=== PATIENT | male | born 1980 | race Caucasian/White ===

== ENCOUNTER → 2020-02-03 15:57 | Outpatient (BNVA) | payer OTHER, SELFPAY | PROVIDERS: PCP Internal Medicine; Referring Provider Internal Medicine; Visit Provider Nurse Practitioner | DX: K21.9 Gastro-esophageal reflux disease without esophagitis (principal); Z87.19 Personal history of other diseases of the digestive system | CPT/HCPCS: 99202 ==

== ENCOUNTER → 2020-04-13 15:59 | Outpatient (BNVA) | payer OTHER, SELFPAY | PROVIDERS: PCP Internal Medicine; Visit Provider Nurse Practitioner | DX: Z13.89 Encounter for screening for other disorder (principal) | CPT/HCPCS: Q3014 ==

== ENCOUNTER 2020-05-12 10:19 | Outpatient (REF) | payer OTHER, SELFPAY ==
[2020-05-12 10:55] LABS: MANUAL DIFF FLAG NO
[2020-05-12 10:59] LABS: Basophils Percent Auto 0.4 % (0-2); Eosinophils Absolute Auto 0.1 X10*3/uL (0.0-0.4); Eosinophils Percent Auto 1.6 % (0-4); Hemoglobin 16.7 g/dl (14.0-18.0); Imm Gran Abs Auto 0.02 X10*3/uL (0.00-0.03); Imm Gran Pct Auto 0.4 % (0.0-0.4); Lymphocytes Absolute Auto 2.3 X10*3/uL (1.2-4.9); Lymphocytes Percent Auto 40.3 % (20-40); Mean Corpuscular HGB Conc 34.1 g/dl (31.0-36.0); Mean Corpuscular Hemoglobin 30.8 pg (27.0-33.0); Mean Corpuscular Volume 90.4 fL (80-98); Mean Platelet Volume 10.2 fL (9.4-12.4); Monocytes Absolute Auto 0.5 X10*3/uL (0.1-1.2); Monocytes Percent Auto 9.7 % (2-11); Neutrophils Absolute Auto 2.7 X10*3/uL (2.0-8.3); Neutrophils Percent Auto 47.6 % (45-73); Platelet Count 290 X10*3/uL (160-400); Red Blood Count 5.42 X10*6/uL (4.60-5.80); Red Cell Distribution Width 12.6 % (11.0-16.0); White Blood Count 5.6 X10*3/uL (4.8-10.8)
[2020-05-12 11:23] LABS: Alanine Aminotransferase 21 U/L (0-40); Albumin Level 4.4 g/dL (3.5-5.0); Alkaline Phosphatase 65 U/L (39-117); Anion Gap 12 (12-20); Aspartate Amino Transferase 14 U/L (5-37); Bilirubin Total 0.7 mg/dL (0.0-1.0); Blood Urea Nitrogen 13 mg/dL (9-16); Calcium 9.6 mg/dL (8.4-10.2); Carbon Dioxide 28 mmol/L (22-29); Chloride 103 mmol/L (96-108); Estimated Glomerular Filt Rate > 60; Glucose Random 87 mg/dL (60-115); Potassium 4.6 mmol/L (3.3-5.1); Sodium 138 mmol/L (135-145)
== END 2020-05-12 10:20 | disposition home or self-care (01) ==
LOC: HO.LAB 10:19
PROVIDERS: PCP Internal Medicine; Visit Provider Nurse Practitioner
DX: K21.9 Gastro-esophageal reflux disease without esophagitis (principal)
CPT/HCPCS: 36415; 80053; 85025

== ENCOUNTER → 2020-09-06 08:28 | Outpatient (BNVA) | payer OTHER, SELFPAY | PROVIDERS: Visit Provider Nurse Practitioner | CPT/HCPCS: Q3014 ==

== ENCOUNTER 2020-09-09 10:56 | Outpatient (REF) | payer OTHER, SELFPAY | END 2020-09-09 10:57 | disposition home or self-care (01) | LOC: HO.LNP 10:56 | PROVIDERS: Visit Provider Nurse Practitioner | DX: K21.9 Gastro-esophageal reflux disease without esophagitis (principal) | CPT/HCPCS: 87338 ==

== ENCOUNTER → 2020-10-07 09:11 | Outpatient (BNVA) | payer OTHER, SELFPAY | PROVIDERS: PCP Internal Medicine; Visit Provider Nurse Practitioner | DX: K21.9 Gastro-esophageal reflux disease without esophagitis (principal); R10.13 Epigastric pain; R14.0 Abdominal distension (gaseous); F17.210 Nicotine dependence, cigarettes, uncomplicated; Z87.19 Personal history of other diseases of the digestive system | CPT/HCPCS: Q3014 ==

== ENCOUNTER → 2020-11-15 09:01 | Outpatient (BNVA) | payer OTHER, SELFPAY | PROVIDERS: PCP Internal Medicine; Visit Provider Nurse Practitioner | CPT/HCPCS: Q3014 ==

== ENCOUNTER → 2021-01-12 09:27 | Outpatient (BNVA) | payer OTHER, SELFPAY | PROVIDERS: PCP Internal Medicine; Visit Provider Nurse Practitioner | DX: Z13.89 Encounter for screening for other disorder (principal) | CPT/HCPCS: Q3014 ==

== ENCOUNTER → 2021-02-24 08:35 | Outpatient (BNVA) | payer OTHER, SELFPAY | PROVIDERS: PCP Internal Medicine; Visit Provider Nurse Practitioner | DX: Z13.89 Encounter for screening for other disorder (principal) | CPT/HCPCS: Q3014 ==

== ENCOUNTER → 2022-10-01 08:19 | Outpatient (REF) | payer OTHER, SELFPAY ==
--- NOTE | 2022-10-01 08:23 | HM_ITS ---
Conclusion: 1. Patient was monitored for total period of 2 days 2. Baseline was normal sinus with average heart of 80 beats per minute 3. Rare PACs noted 4. 1 short run of SVT that lasted 11 beats could represent atrial fibrillation 5. No patient reported events MTDD
== END ==
LOC: HO.CARD 08:19
PROVIDERS: Visit Provider Internal Medicine
DX: R00.2 Palpitations (principal)
CPT/HCPCS: 93225

== ENCOUNTER → 2022-10-01 08:23 | Outpatient (BNV) | payer OTHER, SELFPAY | PROVIDERS: Visit Provider Internal Medicine Cardiovascular Disease | DX: I47.1 Supraventricular tachycardia (principal) | CPT/HCPCS: 93227 ==

== ENCOUNTER 2023-02-25 13:55 | Outpatient (REF) | payer OTHER, SELFPAY ==
[2023-02-25 16:25] LABS: Anion Gap 12 (12-20); Blood Urea Nitrogen 12 mg/dL (9-16); Calcium 9.9 mg/dL (8.4-10.2); Carbon Dioxide 29 mmol/L (22-29); Chloride 105 mmol/L (96-108); Estimated Glomerular Filt Rate > 60; Glucose Random 89 mg/dL (60-115); Magnesium 1.9 mg/dL (1.6-2.6); Potassium 3.8 mmol/L (3.3-5.1); Sodium 142 mmol/L (135-145)
[2023-02-25 16:37] LABS: TSH reflex Free T4 1.07 uIU/mL (0.32-4.0)
== END 2023-02-25 13:56 | disposition home or self-care (01) ==
LOC: HO.LAB 13:55
PROVIDERS: PCP Internal Medicine; Visit Provider Internal Medicine Cardiovascular Disease
DX: I49.8 Other specified cardiac arrhythmias (principal)
CPT/HCPCS: 36415; 80048; 83735; 84443; 93005; 99202

== ENCOUNTER 2023-02-25 13:55 | Outpatient (AMB) | payer OTHER, SELFPAY ==
--- NOTE | 2023-02-25 14:08 | MHC.OFFVIS ---
Intake Vital Signs 02/25/23 14:11 Height 5 ft 9 in Weight 196 lb 3.382 oz BMI 29.0 BP 112/70 Blood Pressure Location Lt brachial Position Sitting Pulse 86 Intake Visit Reasons: NPV/Palpitations/T. [place] Intake Note: New patient c/o fluttering in chest at times never happened during the holter he had in September Referral Specialist Required: No Allergies No Known Allergies Allergy (Verified 02/24/21 08:38) Medication List - Last Reconciled 02/25/23 by Will Roberts MD dicyclomine 20 mg PO QID fluticasone propionate 50 mcg/actuation 1 spray intranasal DAILY ibuprofen 400 mg PO TID PRN mirtazapine 30 mg PO BEDTIME naproxen 500 mg PO BID oxcarbazepine 600 mg PO BEDTIME pantoprazole (Protonix) 40 mg PO BID 30 days HPI HPI Comments History of Present Illness Details Thank you for referring Gabriel in cardiology consultation today for palpitations. He is a 42-year-old male with prior history of smoking, alcohol use as well as heavy caffeine intake. Patient is been having symptoms of palpitation about 6 years. About 6 years ago he stopped drinking alcohol and started having fluttering in his chest and he felt that this was from stopping the alcohol ring and from withdrawing. He can noted symptoms then subsided for about a year and half and has started happening again. There been happening since last 2-3 years. Increase in frequency with increased stress related to his mom's health. He describes his symptoms as rapid heart rate with palpitations that can last for up to 15 seconds. Some of these episodes are associated lightheadedness. He underwent Holter monitor recently, he said during wearing of the Holter monitor did not have any significant symptoms although he marked events which correlated with short burst of PACs. He has rare PAC burden on the Holter monitor but one 11 beat run suggestive atrial fibrillation. He has been concerned about these palpitations as he his mother had atrial fibrillation is grandmother had atrial fibrillation. Also has history of coronary artery disease on his father side. He said he drinks a lot of caffeine every day as he tries to stay awake. He has never been diagnosed with sleep apnea although he said he fatigue and gets poor sleep and is usually tired in the daytime. He also has started drinking alcohol again but says his alcohol intake is not as significant as before. He also continues to smoke. He said he would probably be able to quit. Denies any exertional chest pain. No shortness of breath, orthopnea, PND. No syncopal episodes. [facility] Family History Father Stomach ulcer Mother Afib Social History Household Members: None Alcohol intake: current Alcohol intake frequency: does not drink Cigarettes Per Day: 20 Review of Systems Const Denies chills, Denies daytime sleepiness, Denies fatigue, Denies fever(s), Denies frequent falls, Denies poor appetite, Denies snoring, Denies stops breathing during sleep, Denies weakness, Denies weight gain and Denies weight loss Eyes Denies loss of vision ENT Denies dizziness and Denies hearing loss Card Denies chest pain, Denies claudication, Denies leg edema, Denies lightheadedness, Denies palpitations, Denies dyspnea, Denies dyspnea on exertion and Denies orthopnea Resp Denies cough, Denies excessive phlegm production, Denies dyspnea, Denies dyspnea on exertion, Denies snoring and Denies wheezing GI Denies abdominal pain, Denies hematochezia, Denies change in bowel habits, Denies nausea and Denies vomiting Denies dysuria and Denies urinary frequency Musc Denies arthralgias, Denies muscle weakness, Denies numbness and Denies other (frequent falls) Skin/Breast Denies nail changes and Denies rash Neuro Denies Abnormal speech present, Denies dizziness, Denies frequent falls, Denies loss of vision, Denies memory loss, Denies numbness and Denies weakness Psych Denies depression and Denies memory loss Endo Denies fatigue and Denies palpitations Amandeep/Lymph Reports easy bruising and Reports other (anemia) Aller/Immun Denies wheezing Physical Exam Vital Signs: Last Vital Signs Pulse 86 02/25/23 14:11 BP 112/70 02/25/23 14:11 BMI result Body Mass Index 29.0 Const General: cooperative, comfortable, no acute distress, alert, awake, Physically active and anxious Nutritional Appearance: overweight Orientation/consciousness: patient oriented x3 Limitations: no limitations HEENT Head: Yes normocephalic and Yes atraumatic Neck Neck: Yes trachea midline, Yes supple and Yes no JVD Resp Effort & Inspection: normal respiratory effort Auscultation: clear to auscultation bilaterally Cardio Jugular venous distension: no JVD Palpation: normal PMI Rate: regular rate Rhythm: regular rhythm Heart sounds: S1 normal heart sound present, S2 normal heart sound present, no click, no gallops, no murmurs and no rubs GI Auscultation: normal bowel sounds Skin General skin exam: no rashes or lesions noted Neuro General: patient oriented x3 and no focal motor deficits Speech: No Abnormal speech present Extrem General: Yes no clubbing, cyanosis or edema Office Procedures EKG Details: EKG shows normal sinus rhythm with incomplete right bundle-branch block [id number]-[id number], Complete Assessment & Plan Assessment & Plan (1) Atrial arrhythmia: Code(s): I49.8 - Other specified cardiac arrhythmias Plan: Patient with highly symptomatic atrial arrhythmias and could have process bleed short runs of atrial fibrillation. However this probably is related to his underlying sleep apnea which is undiagnosed and will suggest him to have home sleep study as well as use of stimulants such as alcohol and caffeine. I have advised him to taper and eventually discontinue and abstain from caffeine and alcohol intake. Meanwhile given that he has highly symptomatic will advise him to be started on metoprolol 50 mg daily to improve his symptoms. He has no other risk factors. Will also obtain echocardiogram to evaluate LV systolic and diastolic function biatrial chamber size. Will obtain event monitor while on metoprolol therapy to see if his atrial arrhythmias suppressed. Will check for baseline blood work with TSH, BMP and magnesium level. Will follow up in the clinic in 2 months time, sooner p.r.n.. Thank you for allowing me to partake in his care Orders: Orders CA echo transthoracic complete Today I49.8 - Other specified cardiac arrhythmias Basic Metabolic Panel Today I49.8 - Other specified cardiac arrhythmias Magnesium Today I49.8 - Other specified cardiac arrhythmias RT home sleep study Today I49.8 - Other specified cardiac arrhythmias, R40.0 - Somnolence ECG 30 day event monitor Today I49.8 - Other specified cardiac arrhythmias TSH reflex Free T4 Today I49.8 - Other specified cardiac arrhythmias Medications: New metoprolol succinate ER (Toprol XL) 50 mg PO DAILY 30 tabs 5RF I49.8 - Other specified cardiac arrhythmias Coding Level of Care Code New Pt Level 4 (42808) Diagnoses Atrial arrhythmia I49.8 CPT Codes EKG - CPT: 31852-[id number], Complete ([id number])
[2023-02-25 14:11] VITALS: BP 112/70; PULSE 86; BMI 29.0
== END 2023-02-25 14:40 | disposition home or self-care (01) ==
PROVIDERS: Visit Provider Internal Medicine Cardiovascular Disease
DX: I49.8 Other specified cardiac arrhythmias (principal)
CPT/HCPCS: 93010; 99204

== ENCOUNTER 2023-12-20 09:22 | Outpatient (REF) | payer OTHER, SELFPAY ==
[2023-12-20 14:13] LABS: MANUAL DIFF FLAG NO
[2023-12-20 14:19] LABS: Basophils Absolute Auto 0.1 X10*3/uL (0.0-0.2); Basophils Percent Auto 0.7 % (0-2); Eosinophils Absolute Auto 0.1 X10*3/uL (0.0-0.4); Eosinophils Percent Auto 1.4 % (0-4); Hematocrit 52.7 % (42.0-52.0); Hemoglobin 18.1 g/dl (14.0-18.0); Imm Gran Abs Auto 0.03 X10*3/uL (0.00-0.03); Imm Gran Pct Auto 0.4 % (0.0-0.4); Lymphocytes Absolute Auto 2.3 X10*3/uL (1.2-4.9); Lymphocytes Percent Auto 32.7 % (20-40); Mean Corpuscular HGB Conc 34.3 g/dl (31.0-36.0); Mean Corpuscular Hemoglobin 31.5 pg (27.0-33.0); Mean Corpuscular Volume 91.8 fL (80.0-98.0); Mean Platelet Volume 9.6 fL (9.4-12.4); Monocytes Absolute Auto 0.5 X10*3/uL (0.1-1.2); Monocytes Percent Auto 7.8 % (2-11); Neutrophils Absolute Auto 3.9 x10*3/uL (2.0-8.3); Platelet Count 326 X10*3/uL (160-400); Red Blood Count 5.74 X10*6/uL (4.60-5.80); White Blood Count 6.9 X10*3/uL (4.8-10.8)
[2023-12-20 14:49] LABS: Alanine Aminotransferase 25 U/L (0-40); Albumin Level 4.2 g/dL (3.5-5.0); Alkaline Phosphatase 71 U/L (39-117); Anion Gap 13 (12-20); Aspartate Amino Transferase 14 U/L (5-37); Bilirubin Total 0.6 mg/dL (0.0-1.0); Blood Urea Nitrogen 15 mg/dL (9-16); Carbon Dioxide 28 mmol/L (22-29); Chloride 103 mmol/L (96-108); Cholesterol 257 mg/dL (<200); Estimated Glomerular Filt Rate > 60; Glucose Random 71 mg/dL (60-115); HDL Cholesterol 52 mg/dL (>40); LDL Cholesterol Calculated 179 mg/dL (<100); Potassium 4.3 mmol/L (3.3-5.1); Sodium 140 mmol/L (135-145); Total Protein 7.4 g/dL (6.5-8.0); Triglycerides 134 mg/dL (<150)
[2023-12-20 15:08] LABS: TSH reflex Free T4 1.02 uIU/mL (0.32-4.0); Vitamin D 25-OH Total 40.1 ng/mL (>30)
[2023-12-20 15:13] LABS: Folate 7.4 ng/mL (> or = 4.0); Vitamin B12 360 pg/mL (200-900)
== END 2023-12-20 09:23 | disposition home or self-care (01) ==
LOC: HO.CHCLDS 09:22
PROVIDERS: Visit Provider Internal Medicine
DX: Z00.00 Encounter for general adult medical examination without abnormal findings (principal)
CPT/HCPCS: 36415; 80053; 80061; 82306; 82607; 82746; 84443; 85025